=== PATIENT | female | born 1960 | race African-American/Black ===

== ENCOUNTER 2016-06-19 07:55 | Emergency (ER) | payer SELFPAY ==
[~2016-06-19] VITALS: Ht 160 cm; Wt 79.0 kg
[2016-06-19] MEDS ORDERED: HYDROCHLOROTHIA25 MG PO (08:17)
[2016-06-19] MEDS ORDERED: IRON325 MG PO ×2 (08:18)
[2016-06-19] MEDS ORDERED: LISINOPRIL40 MG PO (08:18)
[2016-06-19] MEDS ORDERED: METOPROLOL TAR100 MG PO (08:19)
[2016-06-19 08:53] LABS: EOSINOPHIL (%) 2.5 % (0-5); EOSINOPHIL COUNT 0.1 K/uL (0-0.3); HEMATOCRIT 37.3 % (36.0-46.0); LYMPHOCYTE COUNT 1.6 K/uL (1.0-2.8); MCH 27.3 PG (29.0-34.0); MCHC 31.6 G/DL (30.0-36.0); MCV 86.1 FL (83-99); MEAN PLAT.VOLUME 9.2 uM^3 (9.5-12.4); MONOCYTE (%) 8.8 % (3-12); MONOCYTE COUNT 0.4 K/uL (0-0.8); NEUTROPHIL (%) 50.9 % (45-76); NEUTROPHIL COUNT 2.3 K/uL (1.8-6.4); PLATELET COUNT 305 K/uL (156-360); RBC DIS.WIDTH-SD 46.7 % (39-53); RED BLOOD COUNT 4.33 M/uL (3.80-5.20); WHITE BLOOD COUNT 4.4 K/uL (4.1-10.2)
[2016-06-19 09:01] LABS: CHLORIDE 103 mEq/L (99-109); POTASSIUM 3.3 mEq/L (3.7-5.4); SODIUM 140 mEq/L (136-147)
[2016-06-19 09:03] LABS: GLUCOSE 122 mg/dL (70-99)
[2016-06-19 09:05] LABS: ANION GAP 11 MEQ/L (2-14); TOTAL BILIRUBIN 0.6 mg/dL (0.0-1.0)
[2016-06-19 09:07] LABS: ALKALINE PHOSPHATASE 82 IU/L (3-129); GFR ESTIMATE (CALCULATED) > 59 mL/min/
[2016-06-19 09:08] LABS: UREA NITROGEN (BUN) 12 mg/dL (9-23)
[2016-06-19 09:11] LABS: LIPASE 18 U/L (1.0-51.0)
[2016-06-19] MEDS ORDERED: PEPCID20 MG PO (09:43)
[2016-06-19] MEDS ORDERED: CARAFATE1 GM PO (09:43)
[2016-06-19 10:06] VITALS: BP 140/98
== END 2016-06-19 10:07 | disposition home or self-care (01) ==
LOC: EME 07:55
PROVIDERS: Physician Assistant
DX: R10.9 Unspecified abdominal pain (principal); K21.9 Gastro-esophageal reflux disease without esophagitis; I10 Essential (primary) hypertension; G47.30 Sleep apnea, unspecified
CPT/HCPCS: 80053; 83690; 85025; 99281; 99283

== ENCOUNTER 2016-12-20 00:59 | Inpatient (IN) | payer SELFPAY ==
[~2016-12-20] VITALS: Ht 160 cm; Wt 76.4 kg
[2016-12-20] VITALS (9 sets, daily range): BP systolic 120–138; BP diastolic 75–85
[~2016-12-20 00:59] MED LIST: CARAFATE1 GM PO; HYDROCHLOROTHIA25 MG PO; IRON325 M1 PO; IRON325 MG PO; LISINOPRIL40 MG PO; METOPROLOL TAR100 MG PO; PEPCID20 MG PO
[2016-12-20 01:27] LABS: HEMATOCRIT 27.6 % (36.0-46.0); MCH 21.4 PG (29.0-34.0); MCHC 29.3 G/DL (30.0-36.0); MCV 72.8 FL (83-99); MEAN PLAT.VOLUME 8.9 uM^3 (9.5-12.4); PLATELET COUNT 559 K/uL (156-360); RBC DIS.WIDTH-CV 16.6 % (11.8-14.6); RBC DIS.WIDTH-SD 43.3 % (39-53); RED BLOOD COUNT 3.79 M/uL (3.80-5.20); WHITE BLOOD COUNT 13.5 K/uL (4.1-10.2)
[2016-12-20 01:30] LABS: CHLORIDE 90 mEq/L (99-109); POTASSIUM 3.1 mEq/L (3.7-5.4); SODIUM 133 mEq/L (136-147)
[2016-12-20 01:32] LABS: GLUCOSE 150 mg/dL (70-99)
[2016-12-20 01:33] LABS: ANION GAP 17 MEQ/L (2-14)
[2016-12-20 01:36] LABS: GFR ESTIMATE (CALCULATED) > 59 mL/min/
[2016-12-20 01:37] LABS: UREA NITROGEN (BUN) 8 mg/dL (9-23)
[2016-12-20 02:17] LABS: INTER. NORMALIZED RATIO 1.4; PROTHROMBIN TIME 15.3 SEC (10.2-12.9)
[2016-12-20 02:20] LABS: PTT 37.8 SEC (25-37)
[2016-12-20 02:30] LABS: TROP-I INTERPRETATION NEGATIVE; TROPONIN-I < 0.01 ng/mL (0.0-0.30)
[2016-12-20 02:57] LABS: TOTAL BILIRUBIN 1.4 mg/dL (0.0-1.0)
[2016-12-20 02:58] LABS: ALKALINE PHOSPHATASE 151 IU/L (3-129)
[2016-12-20 03:00] LABS: DIRECT BILIRUBIN 0.7 mg/dL (0.0-0.3)
[2016-12-20 03:01] LABS: LIPASE 23 U/L (1.0-51.0)
[2016-12-20 09:57] LABS: IRON 52 MCG/DL (35-150)
[2016-12-20 10:14] LABS: FERRITIN 82 NG/ML (10-291)
[2016-12-20 13:36] LABS: ADD MIUA? YES; BILIRUBIN NEGATIVE; BLOOD NEGATIVE; COLOR YELLOW ((YELLOW)); GLUCOSE (STRIP) NEGATIVE; KETONES 5; LEUKOCYTES NEGATIVE; NITRITE NEGATIVE; PROTEIN (STRIP) 30; SPECIFIC GRAVITY 1.028 (1.000-1.030)
[2016-12-20 13:46] LABS: BACTERIA RARE /HPF; EPITHELIAL CELLS RARE /HPF; MUCUS TRACE /LPF; RED BLOOD CELLS 0-5 /HPF (0-5); UCUL ADDED? YES
[2016-12-21] VITALS (7 sets, daily range): BP systolic 132–169; BP diastolic 76–104
[2016-12-21 04:12] LABS: HEMATOCRIT 27.4 % (36.0-46.0); MCV 76.3 FL (83-99)
[2016-12-21 04:21] LABS: POTASSIUM 3.4 mEq/L (3.7-5.4); SODIUM 139 mEq/L (136-147)
[2016-12-21 04:24] LABS: ANION GAP 11 MEQ/L (2-14)
[2016-12-21 04:26] LABS: GFR ESTIMATE (CALCULATED) > 59 mL/min/
[2016-12-21 04:27] LABS: CHLORIDE 101 mEq/L (99-109); GLUCOSE 98 mg/dL (70-99); UREA NITROGEN (BUN) 7 mg/dL (9-23)
[2016-12-21 08:47] LABS: ALKALINE PHOSPHATASE 96 IU/L (3-129); SAMPLE HEMOLYSIS CHECK 0; SAMPLE ICTERIC CHECK 0; SAMPLE LIPEMIA CHECK 1; TOTAL BILIRUBIN 0.9 MG/DL (0.0-1.0)
[2016-12-22 06:38] VITALS: BP 140/100
[2016-12-22 06:46] LABS: HEMATOCRIT 31.4 % (36.0-46.0); MCH 22.1 PG (29.0-34.0); MCHC 28.7 G/DL (30.0-36.0); MCV 77.1 FL (83-99); MEAN PLAT.VOLUME 9.1 uM^3 (9.5-12.4); NRBC (%) 0.3 /100 WBC (0-0); PLATELET COUNT 463 K/uL (156-360); RBC DIS.WIDTH-CV 16.7 % (11.8-14.6); RBC DIS.WIDTH-SD 46.5 % (39-53); RED BLOOD COUNT 4.07 M/uL (3.80-5.20); WHITE BLOOD COUNT 6.7 K/uL (4.1-10.2)
[2016-12-22 07:12] LABS: ANION GAP 10 MEQ/L (2-14); CHLORIDE 105 MEQ/L (99-109); GFR ESTIMATE (CALCULATED) > 59 mL/min/; GLUCOSE 104 mg/dL (70-99); POTASSIUM 4.7 MEQ/L (3.7-5.4); SAMPLE HEMOLYSIS CHECK 0; SAMPLE ICTERIC CHECK 0; SAMPLE LIPEMIA CHECK 0; SODIUM 138 MEQ/L (136-147); UREA NITROGEN (BUN) 4 mg/dL (9-23)
[2016-12-22 08:04] VITALS: BP 154/90
[2016-12-22 11:49] VITALS: BP 160/104
[2016-12-22 12:23] LABS: MAGNESIUM 2.4 mg/dl (1.3-2.7)
[2016-12-22] MEDS ORDERED: PEPCID20 MG PO (14:56)
[2016-12-22 16:34] VITALS: BP 150/80
[2016-12-22 19:52] VITALS: BP 142/69
[2016-12-22 23:49] VITALS: BP 142/86
[2016-12-23 03:11] VITALS: BP 164/94
[2016-12-23 06:47] LABS: HEMATOCRIT 33.8 % (36.0-46.0); MCH 22.1 PG (29.0-34.0); MCV 76.1 FL (83-99); MEAN PLAT.VOLUME 9.1 uM^3 (9.5-12.4); NRBC (%) 0.2 /100 WBC (0-0); PLATELET COUNT 499 K/uL (156-360); RBC DIS.WIDTH-CV 17.3 % (11.8-14.6); RBC DIS.WIDTH-SD 46.4 % (39-53); RED BLOOD COUNT 4.44 M/uL (3.80-5.20)
[2016-12-23 07:10] LABS: ANION GAP 11 MEQ/L (2-14); CHLORIDE 102 MEQ/L (99-109); GFR ESTIMATE (CALCULATED) > 59 mL/min/; GLUCOSE 123 mg/dL (70-99); POTASSIUM 4.5 MEQ/L (3.7-5.4); SAMPLE HEMOLYSIS CHECK 0; SAMPLE ICTERIC CHECK 0; SAMPLE LIPEMIA CHECK 0; SODIUM 138 MEQ/L (136-147); UREA NITROGEN (BUN) 7 mg/dL (9-23)
[2016-12-23 11:40] VITALS: BP 178/116
[2016-12-23 15:33] VITALS: BP 174/98
[2016-12-23 19:23] LABS: INTERNAL CONTROL VALID? YES
[2016-12-23 21:45] VITALS: BP 180/90
[2016-12-24] VITALS (9 sets, daily range): BP systolic 120–191; BP diastolic 72–100
[2016-12-24 09:01] LABS: ALKALINE PHOSPHATASE 114 IU/L (3-129); ANION GAP 12 MEQ/L (2-14); CHLORIDE 103 MEQ/L (99-109); GFR ESTIMATE (CALCULATED) > 59 mL/min/; GLUCOSE 126 mg/dL (70-99); POTASSIUM 4.5 MEQ/L (3.7-5.4); SAMPLE HEMOLYSIS CHECK 0; SAMPLE ICTERIC CHECK 0; SAMPLE LIPEMIA CHECK 0; SODIUM 140 MEQ/L (136-147); UREA NITROGEN (BUN) 8 mg/dL (9-23)
[2016-12-24 09:04] LABS: TOTAL BILIRUBIN 0.5 MG/DL (0.0-1.0)
[2016-12-25 03:59] VITALS: BP 142/92
[2016-12-25 08:08] VITALS: BP 159/82
[2016-12-25 09:55] LABS: HEMATOCRIT 30.7 % (36.0-46.0); MCH 22.6 PG (29.0-34.0); MCHC 29.3 G/DL (30.0-36.0); MCV 77.1 FL (83-99); MEAN PLAT.VOLUME 8.9 uM^3 (9.5-12.4); PLATELET COUNT 433 K/uL (156-360); RBC DIS.WIDTH-CV 18.9 % (11.8-14.6); RBC DIS.WIDTH-SD 50.3 % (39-53); RED BLOOD COUNT 3.98 M/uL (3.80-5.20); WHITE BLOOD COUNT 7.8 K/uL (4.1-10.2)
[2016-12-25 10:23] LABS: ANION GAP 13 MEQ/L (2-14); CHLORIDE 109 MEQ/L (99-109); GFR ESTIMATE (CALCULATED) > 59 mL/min/; GLUCOSE 103 mg/dL (70-99); POTASSIUM 3.8 MEQ/L (3.7-5.4); SAMPLE HEMOLYSIS CHECK 0; SAMPLE ICTERIC CHECK 0; SAMPLE LIPEMIA CHECK 0; SODIUM 144 MEQ/L (136-147); UREA NITROGEN (BUN) 10 mg/dL (9-23)
[2016-12-25 16:10] VITALS: BP 158/93
[2016-12-25 19:17] VITALS: BP 154/90
[2016-12-26 00:04] VITALS: BP 142/90
[2016-12-26 03:27] VITALS: BP 150/88
[2016-12-26 06:47] LABS: EOSINOPHIL COUNT 0.1 K/uL (0-0.3); HEMATOCRIT 28.8 % (36.0-46.0); IMMATURE GRANULOCYTE (%) 0.8 % (0.0-0.7); IMMATURE GRANULOCYTE COUNT 0.1 K/uL; INSTRUMENT ABS NEUTROPHIL CT 4.3 K/uL; LYMPHOCYTE COUNT 1.3 K/uL (1.0-2.8); MCH 21.9 PG (29.0-34.0); MCHC 28.1 G/DL (30.0-36.0); MCV 77.8 FL (83-99); MEAN PLAT.VOLUME 8.8 uM^3 (9.5-12.4); MONOCYTE (%) 8.5 % (3-12); MONOCYTE COUNT 0.5 K/uL (0-0.8); NEUTROPHIL (%) 68.6 % (45-76); NEUTROPHIL COUNT 4.3 K/uL (1.8-6.4); PLATELET COUNT 358 K/uL (156-360); RBC DIS.WIDTH-CV 19.3 % (11.8-14.6); RBC DIS.WIDTH-SD 52.4 % (39-53); WHITE BLOOD COUNT 6.2 K/uL (4.1-10.2)
[2016-12-26 07:14] LABS: ANION GAP 13 MEQ/L (2-14); CHLORIDE 111 MEQ/L (99-109); GFR ESTIMATE (CALCULATED) > 59 mL/min/; GLUCOSE 85 mg/dL (70-99); POTASSIUM 3.9 MEQ/L (3.7-5.4); SAMPLE HEMOLYSIS CHECK 0; SAMPLE ICTERIC CHECK 0; SAMPLE LIPEMIA CHECK 0; SODIUM 142 MEQ/L (136-147); UREA NITROGEN (BUN) 7 mg/dL (9-23)
[2016-12-26 07:50] VITALS: BP 172/95
[2016-12-26 11:57] VITALS: BP 170/97
[2016-12-26 23:10] LABS: HEMATOCRIT 32.1 % (36.0-46.0); MCV 76.8 FL (83-99)
[2016-12-27] VITALS (12 sets, daily range): BP systolic 163–196; BP diastolic 88–111
[2016-12-27 06:38] LABS: EOSINOPHIL (%) 0 % (0-5); HEMATOCRIT 27.9 % (36.0-46.0); IMMATURE GRANULOCYTE (%) 0.4 % (0.0-0.7); IMMATURE GRANULOCYTE COUNT 0.1 K/uL; INSTRUMENT ABS NEUTROPHIL CT 12.2 K/uL; LYMPHOCYTE COUNT 0.9 K/uL (1.0-2.8); MCH 22.3 PG (29.0-34.0); MCV 76.9 FL (83-99); MONOCYTE COUNT 0.7 K/uL (0-0.8); NEUTROPHIL (%) 88.2 % (45-76); NEUTROPHIL COUNT 12.2 K/uL (1.8-6.4); PLATELET COUNT 364 K/uL (156-360); RBC DIS.WIDTH-CV 19.4 % (11.8-14.6); RBC DIS.WIDTH-SD 52.3 % (39-53); RED BLOOD COUNT 3.63 M/uL (3.80-5.20); WHITE BLOOD COUNT 13.9 K/uL (4.1-10.2)
[2016-12-27 07:04] LABS: ANION GAP 11 MEQ/L (2-14); CHLORIDE 111 MEQ/L (99-109); GFR ESTIMATE (CALCULATED) > 59 mL/min/; POTASSIUM 3.8 MEQ/L (3.7-5.4); SAMPLE HEMOLYSIS CHECK 0; SAMPLE ICTERIC CHECK 0; SAMPLE LIPEMIA CHECK 0; SODIUM 142 MEQ/L (136-147); UREA NITROGEN (BUN) 6 mg/dL (9-23)
[2016-12-27 07:06] LABS: GLUCOSE 143 mg/dL (70-99)
[2016-12-28] VITALS (10 sets, daily range): BP systolic 168–198; BP diastolic 77–104
[2016-12-28 00:12] LABS: HEMATOCRIT 33.3 % (36.0-46.0); MCH 23.9 PG (29.0-34.0); MCHC 30.6 G/DL (30.0-36.0); MCV 78.2 FL (83-99); MEAN PLAT.VOLUME 8.9 uM^3 (9.5-12.4); NRBC (%) 0.2 /100 WBC (0-0); PLATELET COUNT 312 K/uL (156-360); RBC DIS.WIDTH-CV 19.8 % (11.8-14.6); RBC DIS.WIDTH-SD 54.4 % (39-53); RED BLOOD COUNT 4.26 M/uL (3.80-5.20); WHITE BLOOD COUNT 16.7 K/uL (4.1-10.2)
[2016-12-28 00:17] LABS: INTER. NORMALIZED RATIO 1.3; PROTHROMBIN TIME 14.8 SEC (10.2-12.9)
[2016-12-28 00:20] LABS: CHLORIDE 110 mEq/L (99-109); POTASSIUM 3.4 mEq/L (3.7-5.4); PTT 31.3 SEC (25-37); SODIUM 141 mEq/L (136-147)
[2016-12-28 00:22] LABS: GLUCOSE 125 mg/dL (70-99)
[2016-12-28 00:23] LABS: ANION GAP 10 MEQ/L (2-14)
[2016-12-28 00:24] LABS: TOTAL BILIRUBIN 1.9 mg/dL (0.0-1.0)
[2016-12-28 00:25] LABS: ALKALINE PHOSPHATASE 97 IU/L (3-129)
[2016-12-28 00:26] LABS: GFR ESTIMATE (CALCULATED) > 59 mL/min/
[2016-12-28 00:27] LABS: UREA NITROGEN (BUN) 5 mg/dL (9-23)
[2016-12-28 00:31] LABS: TROP-I INTERPRETATION NEGATIVE; TROPONIN-I 0.02 ng/mL (0.0-0.30)
[2016-12-28 07:24] LABS: EOSINOPHIL (%) 0 % (0-5); HEMATOCRIT 29.2 % (36.0-46.0); IMMATURE GRANULOCYTE (%) 0.5 % (0.0-0.7); IMMATURE GRANULOCYTE COUNT 0.1 K/uL; INSTRUMENT ABS NEUTROPHIL CT 13.7 K/uL; LYMPHOCYTE COUNT 1.2 K/uL (1.0-2.8); MCH 24.4 PG (29.0-34.0); MCHC 30.8 G/DL (30.0-36.0); MCV 79.1 FL (83-99); MEAN PLAT.VOLUME 9.4 uM^3 (9.5-12.4); MONOCYTE (%) 5.5 % (3-12); MONOCYTE COUNT 0.9 K/uL (0-0.8); NEUTROPHIL (%) 86.3 % (45-76); NEUTROPHIL COUNT 13.7 K/uL (1.8-6.4); PLATELET COUNT 281 K/uL (156-360); RBC DIS.WIDTH-CV 19.9 % (11.8-14.6); RBC DIS.WIDTH-SD 55.5 % (39-53); RED BLOOD COUNT 3.69 M/uL (3.80-5.20); WHITE BLOOD COUNT 15.9 K/uL (4.1-10.2)
[2016-12-28 07:44] LABS: ANION GAP 10 MEQ/L (2-14); CHLORIDE 110 MEQ/L (99-109); GFR ESTIMATE (CALCULATED) > 59 mL/min/; GLUCOSE 115 mg/dL (70-99); POTASSIUM 3.5 MEQ/L (3.7-5.4); SAMPLE HEMOLYSIS CHECK 0; SAMPLE ICTERIC CHECK 0; SAMPLE LIPEMIA CHECK 0; SODIUM 141 MEQ/L (136-147); UREA NITROGEN (BUN) 5 mg/dL (9-23)
[2016-12-28 09:15] LABS: MAGNESIUM 1.8 mg/dl (1.3-2.7)
[2016-12-28 19:51] LABS: HEMATOCRIT 33.3 % (36.0-46.0); MCH 24.2 PG (29.0-34.0); MCHC 30.9 G/DL (30.0-36.0); MCV 78.4 FL (83-99); MEAN PLAT.VOLUME 9.3 uM^3 (9.5-12.4); PLATELET COUNT 272 K/uL (156-360); RBC DIS.WIDTH-CV 18.8 % (11.8-14.6); RBC DIS.WIDTH-SD 53.2 % (39-53); RED BLOOD COUNT 4.25 M/uL (3.80-5.20); WHITE BLOOD COUNT 15.7 K/uL (4.1-10.2)
[2016-12-29] VITALS (10 sets, daily range): BP systolic 167–181; BP diastolic 85–107
[2016-12-29 04:40] LABS: EOSINOPHIL (%) 0 % (0-5); HEMATOCRIT 32.8 % (36.0-46.0); IMMATURE GRANULOCYTE (%) 0.2 % (0.0-0.7); LYMPHOCYTE COUNT 1.2 K/uL (1.0-2.8); MCH 23.9 PG (29.0-34.0); MCHC 30.5 G/DL (30.0-36.0); MCV 78.3 FL (83-99); MEAN PLAT.VOLUME 9.1 uM^3 (9.5-12.4); MONOCYTE COUNT 0.9 K/uL (0-0.8); NEUTROPHIL (%) 83.3 % (45-76); PLATELET COUNT 244 K/uL (156-360); RBC DIS.WIDTH-CV 19.1 % (11.8-14.6); RBC DIS.WIDTH-SD 53.7 % (39-53); RED BLOOD COUNT 4.19 M/uL (3.80-5.20); WHITE BLOOD COUNT 13.2 K/uL (4.1-10.2)
[2016-12-29 04:56] LABS: CHLORIDE 110 mEq/L (99-109); POTASSIUM 3.2 mEq/L (3.7-5.4); SODIUM 142 mEq/L (136-147)
[2016-12-29 04:57] LABS: MAGNESIUM 1.7 mg/dL (1.3-2.7)
[2016-12-29 04:59] LABS: GLUCOSE 100 mg/dL (70-99)
[2016-12-29 05:00] LABS: ANION GAP 12 MEQ/L (2-14)
[2016-12-29 05:01] LABS: TOTAL BILIRUBIN 1.6 mg/dL (0.0-1.0)
[2016-12-29 05:02] LABS: ALKALINE PHOSPHATASE 77 IU/L (3-129)
[2016-12-29 05:03] LABS: GFR ESTIMATE (CALCULATED) > 59 mL/min/
[2016-12-29 05:04] LABS: UREA NITROGEN (BUN) 4 mg/dL (9-23)
[2016-12-30 03:06] VITALS: BP 188/107
[2016-12-30 05:52] LABS: EOSINOPHIL (%) 0.6 % (0-5); EOSINOPHIL COUNT 0.1 K/uL (0-0.3); HEMATOCRIT 32.7 % (36.0-46.0); IMMATURE GRANULOCYTE (%) 0.5 % (0.0-0.7); IMMATURE GRANULOCYTE COUNT 0.1 K/uL; INSTRUMENT ABS NEUTROPHIL CT 8.7 K/uL; LYMPHOCYTE COUNT 1.2 K/uL (1.0-2.8); MCH 23.7 PG (29.0-34.0); MCHC 30.3 G/DL (30.0-36.0); MCV 78.4 FL (83-99); MEAN PLAT.VOLUME 9.1 uM^3 (9.5-12.4); MONOCYTE (%) 7.4 % (3-12); MONOCYTE COUNT 0.8 K/uL (0-0.8); NEUTROPHIL (%) 80.6 % (45-76); NEUTROPHIL COUNT 8.7 K/uL (1.8-6.4); PLATELET COUNT 269 K/uL (156-360); RBC DIS.WIDTH-CV 19.6 % (11.8-14.6); RBC DIS.WIDTH-SD 55.7 % (39-53); RED BLOOD COUNT 4.17 M/uL (3.80-5.20); WHITE BLOOD COUNT 10.8 K/uL (4.1-10.2)
[2016-12-30 06:16] LABS: ANION GAP 12 MEQ/L (2-14); CHLORIDE 106 MEQ/L (99-109); GFR ESTIMATE (CALCULATED) > 59 mL/min/; GLUCOSE 95 mg/dL (70-99); POTASSIUM 3.4 MEQ/L (3.7-5.4); SAMPLE HEMOLYSIS CHECK 0; SAMPLE ICTERIC CHECK 0; SAMPLE LIPEMIA CHECK 0; SODIUM 140 MEQ/L (136-147); UREA NITROGEN (BUN) 4 mg/dL (9-23)
[2016-12-30 06:19] LABS: ALKALINE PHOSPHATASE 78 IU/L (3-129); TOTAL BILIRUBIN 1.5 MG/DL (0.0-1.0)
[2016-12-30 09:15] VITALS: BP 178/100
[2016-12-30 17:23] VITALS: BP 168/98
[2016-12-30 19:41] VITALS: BP 190/100
[2016-12-30 21:45] VITALS: BP 180/102
[2016-12-31] VITALS (8 sets, daily range): BP systolic 168–192; BP diastolic 96–106
[2016-12-31 05:31] LABS: EOSINOPHIL (%) 0.3 % (0-5); HEMATOCRIT 31.7 % (36.0-46.0); IMMATURE GRANULOCYTE (%) 0.4 % (0.0-0.7); INSTRUMENT ABS NEUTROPHIL CT 7.8 K/uL; LYMPHOCYTE COUNT 1.3 K/uL (1.0-2.8); MCH 24.1 PG (29.0-34.0); MCHC 30.6 G/DL (30.0-36.0); MCV 78.9 FL (83-99); MEAN PLAT.VOLUME 9.7 uM^3 (9.5-12.4); MONOCYTE (%) 9.4 % (3-12); NEUTROPHIL (%) 76.7 % (45-76); NEUTROPHIL COUNT 7.8 K/uL (1.8-6.4); PLATELET COUNT 285 K/uL (156-360); RBC DIS.WIDTH-CV 19.3 % (11.8-14.6); RBC DIS.WIDTH-SD 54.8 % (39-53); RED BLOOD COUNT 4.02 M/uL (3.80-5.20); WHITE BLOOD COUNT 10.1 K/uL (4.1-10.2)
[2016-12-31 06:05] LABS: ANION GAP 12 MEQ/L (2-14); CHLORIDE 105 MEQ/L (99-109); GFR ESTIMATE (CALCULATED) > 59 mL/min/; GLUCOSE 85 mg/dL (70-99); POTASSIUM 3.3 MEQ/L (3.7-5.4); SAMPLE HEMOLYSIS CHECK 0; SAMPLE ICTERIC CHECK 0; SAMPLE LIPEMIA CHECK 0; SODIUM 141 MEQ/L (136-147); UREA NITROGEN (BUN) 3 mg/dL (9-23)
[2016-12-31 18:37] LABS: MAGNESIUM 1.8 mg/dl (1.3-2.7)
[2017-01-01] VITALS (9 sets, daily range): BP systolic 101–185; BP diastolic 63–110
[2017-01-01 04:40] LABS: HEMATOCRIT 32.1 % (36.0-46.0); MCH 24.6 PG (29.0-34.0); MCHC 31.5 G/DL (30.0-36.0); MCV 78.1 FL (83-99); PLATELET COUNT 270 K/uL (156-360); RBC DIS.WIDTH-CV 19.5 % (11.8-14.6); RBC DIS.WIDTH-SD 55.2 % (39-53); RED BLOOD COUNT 4.11 M/uL (3.80-5.20); WHITE BLOOD COUNT 11.1 K/uL (4.1-10.2)
[2017-01-01 04:48] LABS: CHLORIDE 106 mEq/L (99-109); POTASSIUM 3.6 mEq/L (3.7-5.4); SODIUM 140 mEq/L (136-147)
[2017-01-01 04:49] LABS: GLUCOSE 101 mg/dL (70-99)
[2017-01-01 04:51] LABS: ANION GAP 12 MEQ/L (2-14)
[2017-01-01 04:53] LABS: GFR ESTIMATE (CALCULATED) > 59 mL/min/
[2017-01-01 04:54] LABS: UREA NITROGEN (BUN) 3 mg/dL (9-23)
[2017-01-02 03:25] VITALS: BP 152/80
[2017-01-02 05:23] LABS: CHLORIDE 97 mEq/L (99-109); POTASSIUM 2.9 mEq/L (3.7-5.4); SODIUM 137 mEq/L (136-147)
[2017-01-02 05:25] LABS: GLUCOSE 100 mg/dL (70-99)
[2017-01-02 05:26] LABS: ANION GAP 16 MEQ/L (2-14)
[2017-01-02 05:29] LABS: GFR ESTIMATE (CALCULATED) > 59 mL/min/
[2017-01-02 05:30] LABS: UREA NITROGEN (BUN) 4 mg/dL (9-23)
[2017-01-02 05:40] LABS: MCH 24.1 PG (29.0-34.0); MCHC 30.9 G/DL (30.0-36.0); MEAN PLAT.VOLUME 10.3 uM^3 (9.5-12.4); NRBC (%) 0.2 /100 WBC (0-0); PLATELET COUNT 326 K/uL (156-360); RBC DIS.WIDTH-CV 19.7 % (11.8-14.6); RBC DIS.WIDTH-SD 55.2 % (39-53); WHITE BLOOD COUNT 10.8 K/uL (4.1-10.2)
[2017-01-02 07:46] VITALS: BP 155/88
[2017-01-02 11:47] VITALS: BP 148/89
[2017-01-02 16:32] VITALS: BP 159/91
[2017-01-02 20:10] VITALS: BP 152/72
[2017-01-02 23:59] VITALS: BP 142/72
[2017-01-03 03:00] VITALS: BP 138/74
[2017-01-03 05:22] LABS: CHLORIDE 98 mEq/L (99-109); SODIUM 137 mEq/L (136-147)
[2017-01-03 05:23] LABS: POTASSIUM 3.6 mEq/L (3.7-5.4)
[2017-01-03 05:24] LABS: GLUCOSE 111 mg/dL (70-99)
[2017-01-03 05:26] LABS: ANION GAP 13 MEQ/L (2-14)
[2017-01-03 05:28] LABS: GFR ESTIMATE (CALCULATED) > 59 mL/min/
[2017-01-03 05:29] LABS: UREA NITROGEN (BUN) 5 mg/dL (9-23)
[2017-01-03 09:03] VITALS: BP 130/90
[2017-01-03 12:45] VITALS: BP 124/60
[2017-01-03 19:44] VITALS: BP 138/90
[2017-01-03 23:12] VITALS: BP 129/77
[2017-01-04 01:04] VITALS: BP 134/79
[2017-01-04 07:58] VITALS: BP 132/81
[2017-01-04 09:57] LABS: HEMATOCRIT 31.4 % (36.0-46.0); MCH 23.7 PG (29.0-34.0); MCHC 29.9 G/DL (30.0-36.0); MCV 79.3 FL (83-99); MEAN PLAT.VOLUME 9.6 uM^3 (9.5-12.4); PLATELET COUNT 350 K/uL (156-360); RBC DIS.WIDTH-CV 19.8 % (11.8-14.6); RED BLOOD COUNT 3.96 M/uL (3.80-5.20)
[2017-01-04 10:13] LABS: ANION GAP 14 MEQ/L (2-14); CHLORIDE 95 MEQ/L (99-109); POTASSIUM 3.8 MEQ/L (3.7-5.4); SAMPLE HEMOLYSIS CHECK 0; SAMPLE ICTERIC CHECK 0; SAMPLE LIPEMIA CHECK 0; SODIUM 137 MEQ/L (136-147)
[2017-01-04 10:22] LABS: GFR ESTIMATE (CALCULATED) > 59 mL/min/; GLUCOSE 99 mg/dL (70-99); UREA NITROGEN (BUN) 8 mg/dL (9-23)
[2017-01-04 11:42] VITALS: BP 136/92
[2017-01-04 16:13] VITALS: BP 121/74
[2017-01-04 19:12] VITALS: BP 131/71
[2017-01-04 23:45] VITALS: BP 121/74
[2017-01-05 03:34] VITALS: BP 121/80
[2017-01-05 07:45] VITALS: BP 132/80
[2017-01-05 10:01] LABS: HEMATOCRIT 33.3 % (36.0-46.0); MCH 24.9 PG (29.0-34.0); MCHC 31.2 G/DL (30.0-36.0); MCV 79.7 FL (83-99); MEAN PLAT.VOLUME 9.6 uM^3 (9.5-12.4); PLATELET COUNT 387 K/uL (156-360); RBC DIS.WIDTH-CV 19.8 % (11.8-14.6); RBC DIS.WIDTH-SD 56.6 % (39-53); RED BLOOD COUNT 4.18 M/uL (3.80-5.20); WHITE BLOOD COUNT 13.5 K/uL (4.1-10.2)
[2017-01-05 11:22] VITALS: BP 109/75
[2017-01-05] MEDS ORDERED: HYDROCODON-ACE1 EAC9 PO (12:49)
[2017-01-05 15:37] VITALS: BP 110/69
[2017-01-05 23:53] VITALS: BP 119/72
[2017-01-06 06:00] LABS: HEMATOCRIT 30.9 % (36.0-46.0); MCHC 30.4 G/DL (30.0-36.0); MCV 78.8 FL (83-99); MEAN PLAT.VOLUME 9.9 uM^3 (9.5-12.4); PLATELET COUNT 368 K/uL (156-360); RBC DIS.WIDTH-CV 19.4 % (11.8-14.6); RBC DIS.WIDTH-SD 55.5 % (39-53); RED BLOOD COUNT 3.92 M/uL (3.80-5.20); WHITE BLOOD COUNT 12.2 K/uL (4.1-10.2)
[2017-01-06 07:28] VITALS: BP 114/69
[2017-01-06] MEDS ORDERED: FERROUS SULFAT325 MG PO (12:12)
[2017-01-06] MEDS ORDERED: THIAMINE HCL100 MG PO (12:12)
[2017-01-06] MEDS ORDERED: DULCOLAX5 MG PO (12:12)
[2017-01-06] MEDS ORDERED: FOLIC ACID1 MG PO (12:12)
[2017-01-06] MEDS ORDERED: LISINOPRIL40 MG PO (12:12)
[2017-01-06] MEDS ORDERED: DOCUSATE SODIU100 MG PO (12:12)
[2017-01-06] MEDS ORDERED: HYDROCHLOROTHIA25 MG PO (12:12)
[2017-01-06] MEDS ORDERED: METOPROLOL TAR100 MG PO ×2 (12:12→12:20)
[2017-01-06 15:27] VITALS: BP 109/66
== END 2017-01-06 18:45 | disposition home or self-care (01) | DRG 329 ==
LOC: EME 00:59 → ENRESERV 04:57 → EDOF 04:57 → 3EAST 04:57 → ENRESERV 05:25 → 3EAST 05:55 → ENRESERV 12-28 00:13 → 4EAST 12-28 00:37 → ENRESERV 01-03 23:52 → 5SOUTH 01-04 00:56
PROVIDERS: Emergency Medicine; Hospitalist; Internal Medicine; Physician Assistant; Surgery
PROC: 0DTF4ZZ Resection of Right Large Intestine, Percutaneous Endoscopic Approach (ICD-10-PCS; principal; 2016-12-20)
PROC: 0D9W30Z Drainage of Peritoneum with Drainage Device, Percutaneous Approach (ICD-10-PCS; principal; 2016-12-20)
PROC: 30233N1 Transfusion of Nonautologous Red Blood Cells into Peripheral Vein, Percutaneous Approach (ICD-10-PCS; principal; 2016-12-20)
DX: C18.2 Malignant neoplasm of ascending colon (principal); K65.1 Peritoneal abscess; E87.5 Hyperkalemia; C77.9 Secondary and unspecified malignant neoplasm of lymph node, unspecified; K56.60 Unspecified intestinal obstruction; Z68.30 Body mass index [BMI] 30.0-30.9, adult; E72.20 Disorder of urea cycle metabolism, unspecified; J90 Pleural effusion, not elsewhere classified; K56.7 Ileus, unspecified; K63.0 Abscess of intestine; R74.8 Abnormal levels of other serum enzymes; R00.0 Tachycardia, unspecified; E87.1 Hypo-osmolality and hyponatremia; K21.9 Gastro-esophageal reflux disease without esophagitis; I10 Essential (primary) hypertension; R53.1 Weakness; E66.9 Obesity, unspecified; E87.6 Hypokalemia; F10.239 Alcohol dependence with withdrawal, unspecified; D50.9 Iron deficiency anemia, unspecified; G47.30 Sleep apnea, unspecified; E53.8 Deficiency of other specified B group vitamins; R79.1 Abnormal coagulation profile; K63.89 Other specified diseases of intestine; Z79.899 Other long term (current) drug therapy; Z90.710 Acquired absence of both cervix and uterus; G93.40 Encephalopathy, unspecified; J98.11 Atelectasis; L02.11 Cutaneous abscess of neck; K66.0 Peritoneal adhesions (postprocedural) (postinfection); R17 Unspecified jaundice
CPT/HCPCS: 36600; 49406; 71010; 71275; 74000; 74177; 80048; 80048 91; 80053; 80076; 81003; 82140; 82272; 82378; 82607; 82728; 83540; 83605; 83690; 83735; 84100; 84425 90; 84443; 84466; 84484; 85014; 85018; 85025; 85027; 85610; 85730; 86850; 86900; 86901; 86920; 87040; 87070; 87075; 87076; 87086; 87185; 87205; 88309; 93005; 93306; 94799; 97530 GO; 97530 GP; 99281; 99285; C1769; J0131; J0330; J0360; J1100; J1170; J1644; J2060; J2250; J2405; J2543; J2710; J3010; J3411; J3420; J3475; J3480; J7030; J7050; J7120; P9016; P9045; S0028